=== PATIENT | male | born 1930 | race African-American/Black ===

== ENCOUNTER 2016-09-29 16:53 | Inpatient (IN) | payer OTHER ==
[2016-09-29 17:11] VITALS: BMI 21.4
[2016-09-29] MEDS ORDERED: SODIUM CHLORIDE 1,000 ML IV STA ×2 (17:13→19:03)
[2016-09-29 18:22] LABS: MCH 27.2 pg (25.7-33.7); MEAN PLT VOLUME 8.7 fl (7.5-11.1); PLATELET COUNT 153 K/MM3 (134-434); RDW 19.4 % (11.9-15.9); WHITE BLOOD COUNT 9.3 K/mm3 (4.0-10.0)
--- NOTE | 2016-09-29 18:24 | PDOC ---
[id number]: BOWEL OBSTRUCTION Time Seen by Provider: 09/29/16 17:05 History Source: [facility] Records, Other (Dr. Espinoza) Exam Limitations: No Limitations - History of Present Illness Initial Comments: 09/29/16 18:19 85-year-old male with history of dementia presents the ED for evaluation sent to the ER for small bowel obstruction. Patient had a CT done that showed small bowel obstruction with a dilatation up to 4.7 cm. Patient is currently not vomiting but has had poor by mouth intake for the past 2 days. Patient arrives slightly tachycardic and mildly hypotensive, and appears dehydrated. Timing/Duration: unsure Severity: moderate Associated Symptoms: reports: loss of appetite, weakness Past History - Past Medical History Allergies/Adverse Reactions: Allergies Allergy/AdvReac Type Severity Reaction Status Date / Time No Known Allergies Allergy Verified 09/29/16 17:12 Home Medications: Ambulatory Orders Calcium Carb/Magnesium Oxid/D3 [Calcium Magnesium + D Tablet] 1 mg PO DAILY 25/06 Citalopram Hydrobromide [Celexa] 20 mg PO DAILY 07/26/11 Gabapentin [Neurontin -] 300 mg PO HS 07/26/11 Metformin HCl [Glucophage Xr] 500 mg PO BID 07/26/11 Multivitamin [Daily Multiple Vitamin] 1 each PO DAILY 07/26/11 Xalatan Ophth Drops 1 gtt OU HS 07/26/11 Acetaminophen [Tylenol .Regular Strength -] 650 mg PO Q6H PRN 04/14/12 Aspirin [ASA -] 81 mg PO DAILY 04/14/12 Ibuprofen [Motrin -] 400 mg PO QID PRN 04/14/12 Insulin Regular, Human [Novolin R] 0 unit SQ ASDIR 04/14/12 Latanoprost 0.005% Eye Drops [Xalatan 0.005% Eye Drops -] 1 drop HS 04/14/12 Phenol/Eucalyptus Oil/Menthol [Cepastat 29 mg Lozenge] 29 mg PO ASDIR PRN Simvastatin [Zocor] 10 mg PO DAILY 04/14/12 Brimonidine Tartrate [Alphagan 0.15% -] 1 drop OD TID 09/29/16 Divalproex *ER* [Depakote *ER* -] 500 mg PO HS 09/29/16 Dorzolamide HCl [Trusopt 2%] 1 drop AD BID 09/29/16 Ferrous Sulfate [Feosol] 325 mg PO DAILY 09/29/16 Meclizine HCl 25 mg PO TID 09/29/16 Megestrol Acetate [Megace] 400 mg PO DAILY 09/29/16 Omeprazole Magnesium [Prilosec] 20 mg PO DAILY 09/29/16 Oxybutynin Chloride [Ditropan -] 5 mg PO DAILY 09/29/16 Risperidone 0.5 mg PO HS 09/29/16 Tamsulosin HCl [Flomax] 0.4 mg PO DAILY 09/29/16 Anemia: Yes COPD: Yes Dementia: Yes Diabetes: Yes Suicide Attempt (Hx): No - Immunization History Immunization Up to Date: Yes - Psycho/Social/Smoking Cessation Hx Suicidal Ideation: No Smoking Status: Yes Smoking History: Never smoked Have you smoked in the past 12 months: No Number of Cigarettes Smoked Daily: 0 Information on smoking cessation initiated: No 'Breaking Loose' booklet given: 04/14/12 Drug/Substance Use Hx: No Substance Use Type: None Patient Lives Alone: No Lives with/in: [facility] Review of Systems - Review of Systems Able to Perform ROS?: Yes Constitutional: Yes: Loss of Appetite, Weakness ABD/GI: Yes: Constipated (obstruction) Neurological: Yes: Weakness *Physical Exam - Vital Signs Last Vital Signs Temp Pulse Resp BP Pulse Ox 98.1 F 107 H 20 86/70 100 09/29/16 17:08 09/29/16 17:08 09/29/16 17:08 09/29/16 17:08 09/29/16 17:08 - Physical Exam General Appearance: Yes: Nourished, Appropriately Dressed. No: Apparent Distress HEENT: positive: EOMI, VASQUEZ, TMs Normal, Pharynx Normal (dry) Neck: positive: Supple Respiratory/Chest: positive: Lungs Clear, Normal Breath Sounds. negative: Respiratory Distress, Accessory Muscle Use Cardiovascular: positive: Regular Rhythm, Tachycardia. negative: Murmur Gastrointestinal/Abdominal: positive: Soft. negative: Tenderness Musculoskeletal: negative: CVA Tenderness Extremity: positive: Normal Capillary Refill Integumentary: positive: Normal Color, Warm, Moist Neurologic: positive: Motor Strength 5/5 (but lethargic) Heart Score/ECG Review - ECG Intrepretation Rhythm: Regular Rhythm (rate 106.) ED Treatment Course - LABORATORY CBC & Chemistry Diagram: 09/30/16 08:20 09/30/16 08:20 - RADIOLOGY Radiology Studies Ordered: Category Date Time Status CHEST X-RAY PORTABLE* [RAD] Stat Radiology 09/29/16 17:12 Completed Medical Decision Making - Critical Care Time Total Critical Care Time (minutes): 35 Critical Care Statement: The care of this patient involved high complexity decision making to prevent further life threatening deterioration of the patient 's condition and/or to evalute & treat vital organ system(s) failure or risk of failure. - Medical Decision Making 09/29/16 18:25 Patient sent in for small bowel obstruction to be admitted under Dr. Zahida Leal whom I spoke with and is recommending Dr. Cortez for consultation since patient is not a surgical candidate and is a DNR/DNI. Patient ordered for an NG tube to be placed to low wall suction. Patient ordered for maintenance fluids due to his dehydrated appearance. Patient will be admitted to [facility]. 09/29/16 18:52 Laboratory Tests 09/29/16 09/29/16 09/29/16 17:45 17:45 17:45 WBC 9.3 D Hgb 12.1 Hct 37.7 Neutrophils % Y INR Sodium 148 H Potassium 4.9 Chloride 111 H Carbon Dioxide 26 Anion Gap 11 BUN 62 H D Creatinine 1.5 H D Creat Clearance w eGFR 44.48 Random Glucose 99 Lactic Acid Pending Calcium 9.1 Magnesium 2.5 H Total Bilirubin 0.3 D AST 10 L D ALT 16 Alkaline Phosphatase 68 Albumin 2.9 L Urine Protein Urine Blood Urine Nitrite Ur Leukocyte Esterase Blood Type Antibody Screen 09/29/16 09/29/16 09/29/16 17:45 18:00 18:21 WBC Hgb Hct Neutrophils % INR 1.28 H Sodium Potassium Chloride Carbon Dioxide Anion Gap BUN Creatinine Creat Clearance w eGFR Random Glucose Lactic Acid Calcium Magnesium Total Bilirubin AST ALT Alkaline Phosphatase Albumin Urine Protein 1+ H Urine Blood 3+ H Urine Nitrite Negative Ur Leukocyte Esterase Negative Blood Type Pending Antibody Screen Pending 09/29/16 19:05 Laboratory Tests 09/29/16 17:45 Lactic Acid 3.579 H* Second bag of IV fluid ordered including Cipro and Flagyl IV. *DC/Admit/Observation/Transfer Diagnosis at time of Disposition: Small bowel obstruction - Discharge Dispostion Admit: Yes
[2016-09-29 18:27] LABS: URINE APPEARANCE SLCLOUDY; URINE BILIRUBIN NEGATIVE (NEGATIVE); URINE COLOR AMBER; URINE GLUCOSE (UA) NEGATIVE (NEGATIVE); URINE KETONE NEGATIVE (NEGATIVE); URINE LEUK ESTERASE NEGATIVE (NEGATIVE); URINE NITRITE NEGATIVE (NEGATIVE); URINE UROBILINOGEN 2.0 E.U/dl E.U./dl (0.2-1.0)
[2016-09-29 18:29] LABS: URINE BLOOD 3+ (NEGATIVE); URINE PROTEIN 1+ (NEGATIVE)
[2016-09-29 18:35] LABS: INR 1.28 (0.82-1.09); PROTHROMBIN TIME (PATIENT) 14.1 SEC (9.98-11.88)
[2016-09-29 18:46] LABS: ALBUMIN 2.9 g/dl (3.4-5.0); BILIRUBIN,TOTAL 0.3 mg/dL (0.2-1.0); CALCIUM 9.1 mg/dL (8.5-10.1); CREATININE 1.5 mg/dL (0.7-1.3); MAGNESIUM 2.5 mg/dL (1.8-2.4); TOT PROT 6.7 g/dl (6.4-8.2)
[2016-09-29] MEDS ORDERED: METRONIDAZOLE 500 MG PREMIXED 100 ML IVPB ONE ×2 (19:04→19:15)
[2016-09-29] MEDS ORDERED: CIPROFLOXACIN 200 MG/D5W 100 ML IVPB ONE (19:04)
[2016-09-29 19:56] LABS: URINE MUCUS RARE; URINE RBC 211 /hpf (0-3); URINE WBC 5 /hpf (3-5)
--- NOTE | 2016-09-29 20:35 | CON.GI ---
Consult Consult Specialty:: GI Referred by:: Dr Jake Coughlin Reason for Consultation:: SBO - History of Present Illness Chief Complaint: Patient sent from [place] for evaluation of abdominal distention. 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 - Smoking History Smoking history: Never smoked Have you smoked in the past 12 months: No Aproximately how many cigarettes per day: 0 Home Medications - Allergies Allergies/Adverse Reactions: Allergies Allergy/AdvReac Type Severity Reaction Status Date / Time No Known Allergies Allergy Verified 09/29/16 17:12 - Home Medications Home Medications: Ambulatory Orders Calcium Carb/Magnesium Oxid/D3 [Calcium Magnesium + D Tablet] 1 mg PO DAILY 25/06 Citalopram Hydrobromide [Celexa] 20 mg PO DAILY 07/26/11 Gabapentin [Neurontin -] 300 mg PO HS 07/26/11 Metformin HCl [Glucophage Xr] 500 mg PO BID 07/26/11 Multivitamin [Daily Multiple Vitamin] 1 each PO DAILY 07/26/11 Xalatan Ophth Drops 1 gtt OU HS 07/26/11 Acetaminophen [Tylenol .Regular Strength -] 650 mg PO Q6H PRN 04/14/12 Aspirin [ASA -] 81 mg PO DAILY 04/14/12 Ibuprofen [Motrin -] 400 mg PO QID PRN 04/14/12 Insulin Regular, Human [Novolin R] 0 unit SQ ASDIR 04/14/12 Latanoprost 0.005% Eye Drops [Xalatan 0.005% Eye Drops -] 1 drop HS 04/14/12 Phenol/Eucalyptus Oil/Menthol [Cepastat 29 mg Lozenge] 29 mg PO ASDIR PRN Simvastatin [Zocor] 10 mg PO DAILY 04/14/12 Brimonidine Tartrate [Alphagan 0.15% -] 1 drop OD TID 09/29/16 Divalproex *ER* [Depakote *ER* -] 500 mg PO HS 09/29/16 Dorzolamide HCl [Trusopt 2%] 1 drop AD BID 09/29/16 Ferrous Sulfate [Feosol] 325 mg PO DAILY 09/29/16 Meclizine HCl 25 mg PO TID 09/29/16 Megestrol Acetate [Megace] 400 mg PO DAILY 09/29/16 Omeprazole Magnesium [Prilosec] 20 mg PO DAILY 09/29/16 Oxybutynin Chloride [Ditropan -] 5 mg PO DAILY 09/29/16 Risperidone 0.5 mg PO HS 09/29/16 Tamsulosin HCl [Flomax] 0.4 mg PO DAILY 09/29/16 Physical Exam-GI Vital Signs: Vital Signs Temperature 98.1 F 09/29/16 17:08 Pulse Rate 102 H 09/29/16 18:50 Respiratory Rate 16 09/29/16 18:50 Blood Pressure 127/81 09/29/16 18:50 O2 Sat by Pulse Oximetry (%) 100 09/29/16 17:08 Constitutional: Yes: Well Nourished (Patient noted to have wrist restraints and is apparently DNR/) Neck: Yes: Supple Cardiovascular: Yes: Regular Rate and Rhythm Respiratory: Yes: CTA Bilaterally Gastrointestinal Inspection: Yes: Distention, Hernia (ventral with bowel loop. Non tender to palpation) ...Auscultate: Yes: Hypoactive Bowel Sounds ...Palpate: Yes: Soft. No: Tenderness ...Percussion: Yes: Tympanitic Labs: INR, PTT INR 1.28 (0.82-1.09) H 09/29/16 18:00 CBC, BMP 09/29/16 17:45 09/29/16 17:45 Hepatic Panel Total Bilirubin 0.3 mg/dL (0.2-1.0) D 09/29/16 17:45 AST 10 U/L (15-37) L D 09/29/16 17:45 ALT 16 U/L (12-78) 09/29/16 17:45 Alkaline Phosphatase 68 U/L (45-117) 09/29/16 17:45 Albumin 2.9 g/dl (3.4-5.0) L 09/29/16 17:45 Imaging - Results Cat Scan: Report Reviewed (?high grade obstruction. Non-tender hernia with normal labs.) Assessment/Plan 85 M with above history now with SBO by radiology. Would keep npo Surgical eval Clarify goals of care
[2016-09-29] MEDS ORDERED: ACETAMINOPHEN 1000 MG/100 ML VIAL (NON FORMULARY) IVPB PRN (22:36)
[2016-09-29] MEDS ORDERED: LEVOFLOXACIN 500 MG IVPB 100 ML IVPB SCH (23:00)
[2016-09-30] MEDS: D5-1/2NS+10 MEQ KCL - 1,000 ML IV SCH ×3 (01:07→22:37)
[2016-09-30] MEDS: METRONIDAZOLE 500 MG PREMIXED 100 ML IVPB SCH ×3 (01:08→17:33)
[2016-09-30 08:39] LABS: BASOPHIL 0.4 % (0-2.0); EOSINOPHIL 1.7 % (0-4.5); MCHC 31.8 g/dl (32.0-35.9); MEAN CELL VOLUME 84.8 fl (80-96); MEAN PLT VOLUME 7.9 fl (7.5-11.1); NEUTROPHILS 68.2 % (42.8-82.8); PLATELET COUNT 126 K/MM3 (134-434); RDW 19.4 % (11.9-15.9); WHITE BLOOD COUNT 6.9 K/mm3 (4.0-10.0)
[2016-09-30 09:21] LABS: ALBUMIN 2.6 g/dl (3.4-5.0); ALK PHOS 59 U/L (45-117); ANION GAP 10 (8-16); BILIRUBIN,TOTAL 0.5 mg/dL (0.2-1.0); CO2 27 mmol/L (21-32); CREATININE 1.1 mg/dL (0.7-1.3); GLUCOSE,RANDOM 108 mg/dL (74-106); SGOT/AST 11 U/L (15-37); SGPT/ALT 13 U/L (12-78); TOT PROT 5.6 g/dl (6.4-8.2)
[2016-09-30] MEDS: PANTOPRAZOLE SODIUM 100 ML IVPB SCH (10:56)
[2016-09-30] MEDS: LEVOFLOXACIN 500 MG IVPB 100 ML IVPB SCH (10:57)
--- NOTE | 2016-09-30 11:12 | HP ---
Admitting History and Physical - Primary Care Physician PCP: Ani Coughlin - Admission Chief Complaint: abd pain , SBO History of Present Illness: ER HISTORY - History of Present Illness Initial Comments: 09/29/16 18:19 85-year-old male with history of dementia presents the ED for evaluation sent to the ER for small bowel obstruction. Patient had a CT done that showed small bowel obstruction with a dilatation up to 4.7 cm. Patient is currently not vomiting but has had poor by mouth intake for the past 2 days. Patient arrives slightly tachycardic and mildly hypotensive, and appears dehydrated. Timing/Duration: unsure Severity: moderate Associated Symptoms: reports: loss of appetite, weakness Pt seen by me on the floors Sent from [facility] for SBO. He was recently treated with antibiotics for pneumonia. Pt has been slowly declining, has poor po intake. Noted to have abdominal pain in OR and was sent for outpt CT scan of abdomen on 09/29. I received a call from the radiologist who said that pt had high grade small bowel obstruction . I spoke to his daughter, who does not want any aggressive measures.Pt is DNR/DNI Had a big BM this morning No distress Pt is drowsy He pulled out his NG tube this morning. 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 Cardiovascular: Yes: HTN Gastrointestinal: Yes: GERD Psych: Yes: Bipolar, Depression Endocrine: Yes: Diabetes Mellitus - Advance Directives Advance Directives: Yes: DNR - Smoking History Smoking history: Never smoked Have you smoked in the past 12 months: No Aproximately how many cigarettes per day: 0 - Alcohol/Substance Use Hx Alcohol Use: No Home Medications - Allergies Allergies/Adverse Reactions: Allergies Allergy/AdvReac Type Severity Reaction Status Date / Time No Known Allergies Allergy Verified 09/29/16 17:12 - Home Medications Home Medications: Ambulatory Orders Calcium Carb/Magnesium Oxid/D3 [Calcium Magnesium + D Tablet] 1 mg PO DAILY 25/06 Citalopram Hydrobromide [Celexa] 20 mg PO DAILY 07/26/11 Gabapentin [Neurontin -] 300 mg PO HS 07/26/11 Metformin HCl [Glucophage Xr] 500 mg PO BID 07/26/11 Multivitamin [Daily Multiple Vitamin] 1 each PO DAILY 07/26/11 Xalatan Ophth Drops 1 gtt OU HS 07/26/11 Acetaminophen [Tylenol .Regular Strength -] 650 mg PO Q6H PRN 04/14/12 Aspirin [ASA -] 81 mg PO DAILY 04/14/12 Ibuprofen [Motrin -] 400 mg PO QID PRN 04/14/12 Insulin Regular, Human [Novolin R] 0 unit SQ ASDIR 04/14/12 Latanoprost 0.005% Eye Drops [Xalatan 0.005% Eye Drops -] 1 drop HS 04/14/12 Phenol/Eucalyptus Oil/Menthol [Cepastat 29 mg Lozenge] 29 mg PO ASDIR PRN Simvastatin [Zocor] 10 mg PO DAILY 04/14/12 Brimonidine Tartrate [Alphagan 0.15% -] 1 drop OD TID 09/29/16 Divalproex *ER* [Depakote *ER* -] 500 mg PO HS 09/29/16 Dorzolamide HCl [Trusopt 2%] 1 drop AD BID 09/29/16 Ferrous Sulfate [Feosol] 325 mg PO DAILY 09/29/16 Meclizine HCl 25 mg PO TID 09/29/16 Megestrol Acetate [Megace] 400 mg PO DAILY 09/29/16 Omeprazole Magnesium [Prilosec] 20 mg PO DAILY 09/29/16 Oxybutynin Chloride [Ditropan -] 5 mg PO DAILY 09/29/16 Risperidone 0.5 mg PO HS 09/29/16 Tamsulosin HCl [Flomax] 0.4 mg PO DAILY 09/29/16 Family Disease History - Family Disease History Family History: Unable to Obtain Review of Systems Unable to obtain ROS, reason: poor historian, drowsy Physical Examination Vital Signs: Vital Signs Temperature 98.0 F 09/30/16 09:05 Pulse Rate 81 09/30/16 09:05 Respiratory Rate 18 09/30/16 09:05 Blood Pressure 147/80 09/30/16 09:05 O2 Sat by Pulse Oximetry (%) 100 09/29/16 17:08 Constitutional: Yes: No Distress, Other (drowsy) Cardiovascular: Yes: Regular Rate and Rhythm Respiratory: Yes: Diminished Gastrointestinal: Yes: Normal Bowel Sounds, Soft. No: Distention, Tenderness Edema: No Labs: CBC, BMP 09/30/16 08:20 09/30/16 08:20 Imaging - Results Chest X-ray: Image Reviewed (no infiltrate) EKG: Image Reviewed (sinus tachycardia) Problem List - Problems (1) Small bowel obstruction Code(s): K56.69 - OTHER INTESTINAL OBSTRUCTION (2) Dementia Code(s): F03.90 - UNSPECIFIED DEMENTIA WITHOUT BEHAVIORAL DISTURBANCE Qualifiers: Dementia type: unspecified type Dementia behavioral disturbance: without behavioral disturbance Qualified Code(s): F03.90 - Unspecified dementia without behavioral disturbance (3) Dehydration Code(s): E86.0 - DEHYDRATION (4) Bipolar 1 disorder Code(s): F31.9 - BIPOLAR DISORDER, UNSPECIFIED (5) HTN (hypertension) Code(s): I10 - ESSENTIAL (PRIMARY) HYPERTENSION Qualifiers: Hypertension type: essential hypertension Qualified Code(s): I10 - Essential (primary) hypertension (6) Sepsis Code(s): A41.9 - SEPSIS, UNSPECIFIED ORGANISM Qualifiers: Sepsis type: sepsis due to unspecified organism Qualified Code(s): A41.9 - Sepsis, unspecified organism Assessment/Plan PLAN IV fluids iv antibiotics repeat lactic acid pain control Pt has bowel sounds and had a bm this morning Check [facility] eval noted pt is comfortable DVT prophylaxis-- Heparin sc Daughter does not want any aggressive measures. Hopefully SBO should get resolved with conservative measures.
--- NOTE | 2016-09-30 12:37 | EKG ---
Test Reason : Blood Pressure : / mmHG Vent. Rate : 106 BPM Atrial Rate : 106 BPM P-R Int : 140 ms QRS Dur : 070 ms QT Int : 324 ms P-R-T Axes : 082 069 080 degrees QTc Int : 430 ms SINUS TACHYCARDIA SEPTAL INFARCT , AGE UNDETERMINED ABNORMAL ECG WHEN COMPARED WITH ECG OF 14-APR-2012 11:54, SEPTAL INFARCT IS NOW PRESENT Confirmed by JAMIE OCHOA, WILI ([id number]) on 09/30/2016 12:36:21 PM Referred By: Confirmed By:WILI AYALA MD
--- NOTE | 2016-09-30 15:02 | CONSULT ---
Consult Consult Specialty:: Surgery Referred by:: Elvis Teague Md Reason for Consultation:: Intestinal obstruction. - History of Present Illness History of Present Illness: Patient is admitted with vomiting, abdominal distention and pain, from [facility] and found to have a ventral hernia with small bowel obstruction. Patient has had a large bowel movement after admission. 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 Cardio/Vascular: Yes: HTN Gastrointestinal: Yes: GERD Psych: Yes: Bipolar, Depression Endocrine: Yes: Diabetes Mellitus - Alcohol/Substance Use Hx Alcohol Use: No - Smoking History Smoking history: Never smoked Have you smoked in the past 12 months: No Aproximately how many cigarettes per day: 0 Home Medications - Allergies Allergies/Adverse Reactions: Allergies Allergy/AdvReac Type Severity Reaction Status Date / Time No Known Allergies Allergy Verified 09/29/16 17:12 - Home Medications Home Medications: Ambulatory Orders Calcium Carb/Magnesium Oxid/D3 [Calcium Magnesium + D Tablet] 1 mg PO DAILY 25/06 Citalopram Hydrobromide [Celexa] 20 mg PO DAILY 07/26/11 Gabapentin [Neurontin -] 300 mg PO HS 07/26/11 Metformin HCl [Glucophage Xr] 500 mg PO BID 07/26/11 Multivitamin [Daily Multiple Vitamin] 1 each PO DAILY 07/26/11 Xalatan Ophth Drops 1 gtt OU HS 07/26/11 Acetaminophen [Tylenol .Regular Strength -] 650 mg PO Q6H PRN 04/14/12 Aspirin [ASA -] 81 mg PO DAILY 04/14/12 Ibuprofen [Motrin -] 400 mg PO QID PRN 04/14/12 Insulin Regular, Human [Novolin R] 0 unit SQ ASDIR 04/14/12 Latanoprost 0.005% Eye Drops [Xalatan 0.005% Eye Drops -] 1 drop HS 04/14/12 Phenol/Eucalyptus Oil/Menthol [Cepastat 29 mg Lozenge] 29 mg PO ASDIR PRN Simvastatin [Zocor] 10 mg PO DAILY 04/14/12 Brimonidine Tartrate [Alphagan 0.15% -] 1 drop OD TID 09/29/16 Divalproex *ER* [Depakote *ER* -] 500 mg PO HS 09/29/16 Dorzolamide HCl [Trusopt 2%] 1 drop AD BID 09/29/16 Ferrous Sulfate [Feosol] 325 mg PO DAILY 09/29/16 Meclizine HCl 25 mg PO TID 09/29/16 Megestrol Acetate [Megace] 400 mg PO DAILY 09/29/16 Omeprazole Magnesium [Prilosec] 20 mg PO DAILY 09/29/16 Oxybutynin Chloride [Ditropan -] 5 mg PO DAILY 09/29/16 Risperidone 0.5 mg PO HS 09/29/16 Tamsulosin HCl [Flomax] 0.4 mg PO DAILY 09/29/16 Physical Exam Vital Signs: Vital Signs Temperature 98.1 F 09/30/16 13:56 Pulse Rate 80 09/30/16 13:56 Respiratory Rate 20 09/30/16 13:56 Blood Pressure 151/93 09/30/16 13:56 O2 Sat by Pulse Oximetry (%) 100 09/29/16 17:08 Cardiovascular: Yes: Varicosities Gastrointestinal: Yes: Normal Bowel Sounds (No abdominal distention. Incisional /Ventral hernia , reducible. No abdominal pain , tenderness. No groin hernia is appreciated , however CT scan is reported as showing a right inguinal hernia with unobstructed bowel.), Soft Labs: CBC, BMP 09/30/16 08:20 09/30/16 08:20 Imaging - Results Cat Scan: Report Reviewed Problem List - Problems (1) Ventral hernia with bowel obstruction Code(s): K43.6 - OTHER AND UNSP VENTRAL HERNIA WITH OBSTRUCTION, W/O GANGRENE (2) Dementia Code(s): F03.90 - UNSPECIFIED DEMENTIA WITHOUT BEHAVIORAL DISTURBANCE Qualifiers: Dementia type: Alzheimer's disease Dementia behavioral disturbance: without behavioral disturbance Qualified Code(s): - (3) HTN (hypertension) Code(s): I10 - ESSENTIAL (PRIMARY) HYPERTENSION Qualifiers: Hypertension type: essential hypertension Qualified Code(s): I10 - Essential (primary) hypertension Assessment/Plan Obstructed ventral hernia appears to have reduced. He has no abdominal distention , or pain , no vomiting. Soft abdomen. Will repeat abdominal X -ray.
--- NOTE | 2016-09-30 18:16 | PN ---
GI Progress Note Subjective: patient is asymptomatic, no abdominal pain, no nausea and no vomiting, FUA reviewed,patient noted to have retained stool in the rectum - Objective Vital Signs: Vital Signs Temperature 98.1 F 09/30/16 13:56 Pulse Rate 80 09/30/16 13:56 Respiratory Rate 20 09/30/16 13:56 Blood Pressure 151/93 09/30/16 13:56 O2 Sat by Pulse Oximetry (%) 96 09/30/16 11:00 Constitutional: Well Nourished Eyes: Yes: Conjunctiva Clear Neck: Yes: Supple Cardiovascular: Yes: Regular Rate and Rhythm Respiratory: Yes: CTA Bilaterally ...Palpate: Yes: Soft. No: Firm/Rigid, Guarding, Hepatomegaly, Mass, Pulsatile Mass, Splenomegaly, Tenderness ...Percussion: Yes: Tympanitic Labs: CBC, BMP 09/30/16 08:20 09/30/16 08:20 INR, PTT INR 1.28 (0.82-1.09) H 09/29/16 18:00 Problem List - Problems (1) Small bowel obstruction Assessment/Plan: --resolved Code(s): K56.69 - OTHER INTESTINAL OBSTRUCTION (2) Fecal impaction Assessment/Plan: R> fleet enemas advance diet Code(s): K56.41 - FECAL IMPACTION
[2016-09-30] MEDS: SODIUM PHOSPHATE/NA BIPHOS 133 ML ENEMA PR SCH (20:20)
[2016-09-30] MEDS: HEPARIN NA (PORCINE) 5,000 UNITS/ML 1ML VIAL SQ SCH (22:31)
[2016-10-01] MEDS: SODIUM PHOSPHATE/NA BIPHOS 133 ML ENEMA PR SCH ×2 (00:48→04:39)
[2016-10-01] MEDS: METRONIDAZOLE 500 MG PREMIXED 100 ML IVPB SCH ×3 (01:11→18:20)
[2016-10-01] MEDS: D5-1/2NS+10 MEQ KCL - 1,000 ML IV SCH (04:41)
[2016-10-01 07:17] LABS: BASOPHIL 0.5 % (0-2.0); EOSINOPHIL 0.5 % (0-4.5); MCHC 31.7 g/dl (32.0-35.9); MEAN PLT VOLUME 8.1 fl (7.5-11.1); NEUTROPHILS 76.9 % (42.8-82.8); PLATELET COUNT 139 K/MM3 (134-434); RDW 18.7 % (11.9-15.9); WHITE BLOOD COUNT 9.2 K/mm3 (4.0-10.0)
[2016-10-01 07:46] LABS: ALBUMIN 2.5 g/dl (3.4-5.0); ANION GAP 13 (8-16); BILIRUBIN,TOTAL 0.7 mg/dL (0.2-1.0); CALCIUM 7.3 mg/dL (8.5-10.1); CO2 24 mmol/L (21-32); CREATININE 0.9 mg/dL (0.7-1.3); GLUCOSE,RANDOM 120 mg/dL (74-106); SGOT/AST 14 U/L (15-37); SGPT/ALT 11 U/L (12-78); TOT PROT 5.4 g/dl (6.4-8.2)
[2016-10-01 07:47] LABS: ALK PHOS 62 U/L (45-117)
[2016-10-01] MEDS ORDERED: PT OWN MED DRAWER 7, Y5N ONE (09:23)
[2016-10-01] MEDS: HEPARIN NA (PORCINE) 5,000 UNITS/ML 1ML VIAL SQ SCH ×2 (10:45→21:52)
[2016-10-01] MEDS: PANTOPRAZOLE SODIUM 100 ML IVPB SCH (11:02)
[2016-10-01] MEDS: LEVOFLOXACIN 500 MG IVPB 100 ML IVPB SCH (11:03)
--- NOTE | 2016-10-01 16:21 | PN ---
Progress Note, Physician - Current Medication List Current Medications: Active Medications Heparin Sodium (Porcine) (Heparin -) 5,000 unit SQ BID [facility] Last Admin: 10/01/16 10:45 Dose: 5,000 unit Metronidazole (Flagyl 500mg Premixed Ivpb -) 100 mls @ 100 mls/hr IVPB Q8H-IV [facility] Last Admin: 10/01/16 11:03 Dose: 100 mls/hr Pantoprazole Sodium (Protonix 40mg Ivpb (Pre-Docked)) 100 mls @ 200 mls/hr IVPB DAILY [facility] Last Admin: 10/01/16 11:02 Dose: 200 mls/hr Potassium Chloride/Dextrose/Sod Cl (D5-1/2ns+10 Meq Kcl -) 1,000 mls @ 100 mls/ hr IV ASDIR [facility] Last Admin: 10/01/16 04:41 Dose: 100 mls/hr Levofloxacin (Levaquin 500 Mg Premixed Ivpb -) 100 mls @ 100 mls/hr IVPB DAILY [facility] Last Admin: 10/01/16 11:03 Dose: 100 mls/hr - Objective Vital Signs: Vital Signs Temperature 98.4 F 10/01/16 14:12 Pulse Rate 90 10/01/16 14:12 Respiratory Rate 20 10/01/16 14:12 Blood Pressure 122/87 10/01/16 14:12 O2 Sat by Pulse Oximetry (%) 96 10/01/16 09:00 Labs: CBC, BMP 10/01/16 06:00 10/01/16 06:00 INR, PTT INR 1.28 (0.82-1.09) H 09/29/16 18:00 Problem List - Problems (1) Ventral hernia with bowel obstruction Code(s): K43.6 - OTHER AND UNSP VENTRAL HERNIA WITH OBSTRUCTION, W/O GANGRENE (2) Dementia Code(s): F03.90 - UNSPECIFIED DEMENTIA WITHOUT BEHAVIORAL DISTURBANCE Qualifiers: Dementia type: Alzheimer's disease Dementia behavioral disturbance: without behavioral disturbance (3) HTN (hypertension) Code(s): I10 - ESSENTIAL (PRIMARY) HYPERTENSION Qualifiers: Hypertension type: essential hypertension Qualified Code(s): I10 - Essential (primary) hypertension Assessment/Plan Surgery: Patient is comfortable. No vomiting. Does not c/o abdominal pain. Abdomen is soft , not distended, not tender. Ventral hernia is reducible, without pasin. Both groins are normal. Abdominal X-ray shows air in colon and rectum,, but some air fluid levels are noted on decubitus film. He has been tolerating feeding. On miralax for bowel prep.
--- NOTE | 2016-10-01 20:39 | PN ---
Progress Note, Physician Chief Complaint: no distress eats poor no pain in abdomen - Current Medication List Current Medications: Active Medications Heparin Sodium (Porcine) (Heparin -) 5,000 unit SQ BID [facility] Last Admin: 10/01/16 10:45 Dose: 5,000 unit Metronidazole (Flagyl 500mg Premixed Ivpb -) 100 mls @ 100 mls/hr IVPB Q8H-IV [facility] Last Admin: 10/01/16 18:20 Dose: 100 mls/hr Pantoprazole Sodium (Protonix 40mg Ivpb (Pre-Docked)) 100 mls @ 200 mls/hr IVPB DAILY [facility] Last Admin: 10/01/16 11:02 Dose: 200 mls/hr Potassium Chloride/Dextrose/Sod Cl (D5-1/2ns+10 Meq Kcl -) 1,000 mls @ 100 mls/ hr IV ASDIR [facility] Last Admin: 10/01/16 04:41 Dose: 100 mls/hr Levofloxacin (Levaquin 500 Mg Premixed Ivpb -) 100 mls @ 100 mls/hr IVPB DAILY [facility] Last Admin: 10/01/16 11:03 Dose: 100 mls/hr - Objective Vital Signs: Vital Signs Temperature 99.4 F 10/01/16 20:30 Pulse Rate 98 H 10/01/16 20:30 Respiratory Rate 20 10/01/16 20:36 Blood Pressure 126/81 10/01/16 20:30 O2 Sat by Pulse Oximetry (%) 99 10/01/16 20:36 Constitutional: Yes: No Distress Cardiovascular: Yes: Regular Rate and Rhythm Respiratory: Yes: Diminished Gastrointestinal: Yes: Soft, Hypoactive Bowel Sounds. No: Distention, Tenderness Edema: No Labs: CBC, BMP 10/01/16 06:00 10/01/16 06:00 INR, PTT INR 1.28 (0.82-1.09) H 09/29/16 18:00 Problem List - Problems (1) Small bowel obstruction Code(s): K56.69 - OTHER INTESTINAL OBSTRUCTION (2) Dementia Code(s): F03.90 - UNSPECIFIED DEMENTIA WITHOUT BEHAVIORAL DISTURBANCE Qualifiers: Dementia type: Alzheimer's disease Dementia behavioral disturbance: without behavioral disturbance (3) Dehydration Code(s): E86.0 - DEHYDRATION (4) Bipolar 1 disorder Code(s): F31.9 - BIPOLAR DISORDER, UNSPECIFIED (5) HTN (hypertension) Code(s): I10 - ESSENTIAL (PRIMARY) HYPERTENSION Qualifiers: Hypertension type: essential hypertension Qualified Code(s): I10 - Essential (primary) hypertension (6) Sepsis Code(s): A41.9 - SEPSIS, UNSPECIFIED ORGANISM Qualifiers: Sepsis type: sepsis due to unspecified organism Qualified Code(s): A41.9 - Sepsis, unspecified organism Assessment/Plan PLAN IV fluids iv antibiotics repeat lactic acid pain control surgery eval noted clinically looks better spoke with Surgeon on PO diet pt is comfortable DVT prophylaxis-- Heparin sc Daughter does not want any aggressive measures.
[2016-10-02] MEDS: D5-1/2NS+10 MEQ KCL - 1,000 ML IV SCH ×3 (01:13→20:19)
[2016-10-02] MEDS: METRONIDAZOLE 500 MG PREMIXED 100 ML IVPB SCH ×3 (02:07→18:23)
--- NOTE | 2016-10-02 09:14 | PN ---
Progress Note, Physician - Current Medication List Current Medications: Active Medications Heparin Sodium (Porcine) (Heparin -) 5,000 unit SQ BID [facility] Last Admin: 10/01/16 21:52 Dose: 5,000 unit Metronidazole (Flagyl 500mg Premixed Ivpb -) 100 mls @ 100 mls/hr IVPB Q8H-IV [facility] Last Admin: 10/02/16 02:07 Dose: 100 mls/hr Pantoprazole Sodium (Protonix 40mg Ivpb (Pre-Docked)) 100 mls @ 200 mls/hr IVPB DAILY [facility] Last Admin: 10/01/16 11:02 Dose: 200 mls/hr Potassium Chloride/Dextrose/Sod Cl (D5-1/2ns+10 Meq Kcl -) 1,000 mls @ 100 mls/ hr IV ASDIR [facility] Last Admin: 10/02/16 06:07 Dose: 100 mls/hr Levofloxacin (Levaquin 500 Mg Premixed Ivpb -) 100 mls @ 100 mls/hr IVPB DAILY [facility] Last Admin: 10/01/16 11:03 Dose: 100 mls/hr - Objective Vital Signs: Vital Signs Temperature 97.6 F 10/02/16 06:00 Pulse Rate 101 H 10/02/16 06:00 Respiratory Rate 20 10/02/16 06:00 Blood Pressure 103/72 10/02/16 06:00 O2 Sat by Pulse Oximetry (%) 99 10/01/16 20:36 Labs: CBC, BMP 10/01/16 06:00 10/01/16 06:00 INR, PTT INR 1.28 (0.82-1.09) H 09/29/16 18:00 Problem List - Problems (1) Ventral hernia with bowel obstruction Code(s): K43.6 - OTHER AND UNSP VENTRAL HERNIA WITH OBSTRUCTION, W/O GANGRENE (2) Dementia Code(s): F03.90 - UNSPECIFIED DEMENTIA WITHOUT BEHAVIORAL DISTURBANCE Qualifiers: Dementia type: Alzheimer's disease Dementia behavioral disturbance: without behavioral disturbance (3) HTN (hypertension) Code(s): I10 - ESSENTIAL (PRIMARY) HYPERTENSION Qualifiers: Hypertension type: essential hypertension Qualified Code(s): I10 - Essential (primary) hypertension Assessment/Plan Surgery: Patient is comfortable. No nausea, no vomiting. Abdomen is soft , not distended, not tender. Ventral hernia is reduced. Resume oral feeding. Repeat abdominal X-ray.
[2016-10-02] MEDS: PANTOPRAZOLE SODIUM 100 ML IVPB SCH (09:45)
--- NOTE | 2016-10-02 10:28 | PN ---
Progress Note (short form) - Note Progress Note: Subjective Patient seen and examined. Chart reviewed. Comfortable. Denies any pain. Objective VS: Last Vital Signs Temp Pulse Resp BP Pulse Ox 97.6 F 101 H 20 103/72 99 10/02/16 06:00 10/02/16 06:00 10/02/16 06:00 10/02/16 06:00 10/01/16 20:36 Labs: CBC, BMP 10/01/16 06:00 10/01/16 06:00 Problem List - Problems (1) Small bowel obstruction Code(s): K56.69 - OTHER INTESTINAL OBSTRUCTION (2) Dementia Code(s): F03.90 - UNSPECIFIED DEMENTIA WITHOUT BEHAVIORAL DISTURBANCE Qualifiers: Dementia type: Alzheimer's disease Dementia behavioral disturbance: without behavioral disturbance (3) Dehydration Code(s): E86.0 - DEHYDRATION (4) Bipolar 1 disorder Code(s): F31.9 - BIPOLAR DISORDER, UNSPECIFIED (5) HTN (hypertension) Code(s): I10 - ESSENTIAL (PRIMARY) HYPERTENSION Qualifiers: Hypertension type: essential hypertension Qualified Code(s): I10 - Essential (primary) hypertension (6) Sepsis Code(s): A41.9 - SEPSIS, UNSPECIFIED ORGANISM Qualifiers: Sepsis type: sepsis due to unspecified organism Qualified Code(s): A41.9 - Sepsis, unspecified organism Physical Exam Constitutional: Yes: No Distress Cardiovascular: Yes: Regular Rate and Rhythm Respiratory: Yes: Diminished Gastrointestinal: Yes: Soft, Hypoactive Bowel Sounds. No: Distention, Tenderness Edema: No Assessment and Plan Clinically better. Abdominal XR reviewed - resolving SBO Continue present care. Advance diet slowly. If continue to improve anticipate discharge tomorrow. Documentation prepared by Thu Hull, acting as a medical administrative technician for Ani Coughlin MD.
[2016-10-02] MEDS: LEVOFLOXACIN 500 MG IVPB 100 ML IVPB SCH (11:38)
[2016-10-02] MEDS: HEPARIN NA (PORCINE) 5,000 UNITS/ML 1ML VIAL SQ SCH ×2 (11:38→21:24)
[2016-10-03] MEDS: D5-1/2NS+10 MEQ KCL - 1,000 ML IV SCH (01:00)
[2016-10-03] MEDS: METRONIDAZOLE 500 MG PREMIXED 100 ML IVPB SCH ×2 (01:30→09:39)
[2016-10-03] MEDS: PANTOPRAZOLE SODIUM 100 ML IVPB SCH (09:00)
[2016-10-03] MEDS: HEPARIN NA (PORCINE) 5,000 UNITS/ML 1ML VIAL SQ SCH ×2 (09:01→22:11)
[2016-10-03] MEDS: LEVOFLOXACIN 500 MG IVPB 100 ML IVPB SCH (09:39)
--- NOTE | 2016-10-03 12:15 | PN ---
Progress Note (short form) - Note Progress Note: pt awake/ looks weak. no distress. afebrile. denies pain Vital Signs Temp 98 F 10/03/16 09:10 Pulse 94 H 10/03/16 09:10 Resp 18 10/03/16 09:10 BP 116/79 10/03/16 09:10 Pulse Ox 100 10/03/16 09:00 Intake & Output 10/02/16 10/03/16 10/03/16 23:59 11:59 23:59 Intake Total 50 1600 Output Total 300 300 Balance -250 1300 Intake: IV 1100 D5-1/2Ns+10 Meq KCl - 1, 1100 000 ml @ 100 mls/hr IV ASDIR [facility] Rx#:[id number] IVPB 400 Oral 50 100 Output: Urine 300 300 Cob[place] 300 300 Other: Voiding Method Indwelling Catheter Indwelling Catheter Bowel Movement No No Active Medications Heparin Sodium (Porcine) (Heparin -) 5,000 unit SQ BID [facility] Last Admin: 10/03/16 09:01 Dose: 5,000 unit Pantoprazole Sodium (Protonix 40mg Ivpb (Pre-Docked)) 100 mls @ 200 mls/hr IVPB DAILY [facility] Last Admin: 10/03/16 09:00 Dose: 200 mls/hr Potassium Chloride/Dextrose/Sod Cl (D5-1/2ns+10 Meq Kcl -) 1,000 mls @ 100 mls/ hr IV ASDIR [facility] Last Admin: 10/03/16 01:00 Dose: Not Given CBC, BMP 10/01/16 06:00 10/01/16 06:00 Problem List - Problems (1) Small bowel obstruction Code(s): K56.69 - OTHER INTESTINAL OBSTRUCTION (2) Dementia Code(s): F03.90 - UNSPECIFIED DEMENTIA WITHOUT BEHAVIORAL DISTURBANCE Qualifiers: Dementia type: Alzheimer's disease Dementia behavioral disturbance: without behavioral disturbance (3) Dehydration Code(s): E86.0 - DEHYDRATION (4) Bipolar 1 disorder Code(s): F31.9 - BIPOLAR DISORDER, UNSPECIFIED (5) HTN (hypertension) Code(s): I10 - ESSENTIAL (PRIMARY) HYPERTENSION Qualifiers: Hypertension type: essential hypertension Qualified Code(s): I10 - Essential (primary) hypertension (6) Sepsis Code(s): A41.9 - SEPSIS, UNSPECIFIED ORGANISM Qualifiers: Sepsis type: sepsis due to unspecified organism Qualified Code(s): A41.9 - Sepsis, unspecified organism Physical Exam Constitutional: Yes: No Distress Cardiovascular: Yes: Regular Rate and Rhythm Respiratory: Yes: Diminished Gastrointestinal: Yes: Soft, Hypoactive Bowel Sounds. No: Distention, Tenderness Edema: No Assessment and Plan Clinically better. resolving SBO Continue present care. Advance diet slowly. d/c abx d/ cfoley f/u labs monitor today continue mild hydration If better - consider d/c tomorrow.
--- NOTE | 2016-10-03 19:58 | PN ---
Progress Note, Physician - Current Medication List Current Medications: Active Medications Heparin Sodium (Porcine) (Heparin -) 5,000 unit SQ BID [facility] Last Admin: 10/03/16 09:01 Dose: 5,000 unit Pantoprazole Sodium (Protonix 40mg Ivpb (Pre-Docked)) 100 mls @ 200 mls/hr IVPB DAILY [facility] Last Admin: 10/03/16 09:00 Dose: 200 mls/hr Potassium Chloride/Dextrose/Sod Cl (D5-1/2ns+10 Meq Kcl -) 1,000 mls @ 100 mls/ hr IV ASDIR [facility] Last Admin: 10/03/16 01:00 Dose: Not Given - Objective Vital Signs: Vital Signs Temperature 98 F 10/03/16 17:21 Pulse Rate 92 H 10/03/16 17:21 Respiratory Rate 20 10/03/16 17:21 Blood Pressure 129/69 10/03/16 17:21 O2 Sat by Pulse Oximetry (%) 100 10/03/16 09:00 Labs: CBC, BMP 10/01/16 06:00 10/01/16 06:00 INR, PTT INR 1.28 (0.82-1.09) H 09/29/16 18:00 Problem List - Problems (1) Ventral hernia with bowel obstruction Code(s): K43.6 - OTHER AND UNSP VENTRAL HERNIA WITH OBSTRUCTION, W/O GANGRENE (2) Dementia Code(s): F03.90 - UNSPECIFIED DEMENTIA WITHOUT BEHAVIORAL DISTURBANCE Qualifiers: Dementia type: Alzheimer's disease Dementia behavioral disturbance: without behavioral disturbance (3) HTN (hypertension) Code(s): I10 - ESSENTIAL (PRIMARY) HYPERTENSION Qualifiers: Hypertension type: essential hypertension Qualified Code(s): I10 - Essential (primary) hypertension Assessment/Plan Patient is alert today, talking. He claims to have pain all over his body, but not in his abdomen. He has tolerated liquids. He has not had any bowel movement. The ventral hernia is reducible. Will repeat abdominal X-ray .
[2016-10-03] MEDS: TAMSULOSIN HCL 0.4 MG CAP.ER.24H (FP) PO SCH (22:11)
[2016-10-04] MEDS: D5-1/2NS+10 MEQ KCL - 1,000 ML IV SCH ×2 (07:02→18:28)
[2016-10-04] MEDS: TAMSULOSIN HCL 0.4 MG CAP.ER.24H (FP) PO SCH (08:31)
[2016-10-04] MEDS ORDERED: PT OWN MED DRAWER 7, Y5N ONE ×2 (11:14→18:47)
[2016-10-04] MEDS: HEPARIN NA (PORCINE) 5,000 UNITS/ML 1ML VIAL SQ SCH ×2 (11:19→22:27)
[2016-10-04] MEDS: PANTOPRAZOLE SODIUM 100 ML IVPB SCH (11:20)
--- NOTE | 2016-10-04 11:55 | PN ---
Progress Note (short form) - Note Progress Note: events noted alexander has to reinserted started on flomax denies pain. forgetful no distress passing urine afebrile surgical f/u noted fua- increased sbo Vital Signs Temp 99.0 F 10/04/16 08:52 Pulse 84 10/04/16 08:52 Resp 20 10/04/16 08:55 BP 137/88 10/04/16 08:52 Pulse Ox 99 10/04/16 08:55 Intake & Output 10/03/16 10/03/16 10/04/16 11:59 23:59 11:59 Intake Total 2872 968 7886 Output Total 300 350 650 Balance 1300 -150 700 Intake: IV 1100 1000 D5-1/2Ns+10 Meq KCl - 1, 1100 1000 000 ml @ 100 mls/hr IV ASDIR [facility] Rx#:[id number] IVPB 400 100 Oral 100 200 250 Output: Urine 300 350 650 Alexander 300 350 650 Other: Voiding Method Indwelling Catheter Indwelling Catheter Indwelling Catheter Bowel Movement No Yes Active Medications Heparin Sodium (Porcine) (Heparin -) 5,000 unit SQ BID [facility] Last Admin: 10/04/16 11:19 Dose: 5,000 unit Pantoprazole Sodium (Protonix 40mg Ivpb (Pre-Docked)) 100 mls @ 200 mls/hr IVPB DAILY [facility] Last Admin: 10/04/16 11:20 Dose: 200 mls/hr Potassium Chloride/Dextrose/Sod Cl (D5-1/2ns+10 Meq Kcl -) 1,000 mls @ 100 mls/ hr IV ASDIR [facility] Last Admin: 10/04/16 07:02 Dose: 100 mls/hr Tamsulosin HCl (Flomax -) 0.4 mg PO DAILY@0830 [facility] Last Admin: 10/04/16 08:31 Dose: 0.4 mg CBC, BMP 10/01/16 06:00 10/01/16 06:00 Problem List - Problems (1) Small bowel obstruction Code(s): K56.69 - OTHER INTESTINAL OBSTRUCTION (2) Dementia Code(s): F03.90 - UNSPECIFIED DEMENTIA WITHOUT BEHAVIORAL DISTURBANCE Qualifiers: Dementia type: Alzheimer's disease Dementia behavioral disturbance: without behavioral disturbance (3) Dehydration Code(s): E86.0 - DEHYDRATION (4) Bipolar 1 disorder Code(s): F31.9 - BIPOLAR DISORDER, UNSPECIFIED (5) HTN (hypertension) Code(s): I10 - ESSENTIAL (PRIMARY) HYPERTENSION Qualifiers: Hypertension type: essential hypertension Qualified Code(s): I10 - Essential (primary) hypertension (6) Sepsis Code(s): A41.9 - SEPSIS, UNSPECIFIED ORGANISM Qualifiers: Sepsis type: sepsis due to unspecified organism Qualified Code(s): A41.9 - Sepsis, unspecified organism Physical Exam Constitutional: Yes: No Distress Cardiovascular: Yes: Regular Rate and Rhythm Respiratory: Yes: Diminished Gastrointestinal: Yes: Soft, Hypoactive Bowel Sounds. No: Distention, Tenderness Edema: No Neuro- Awake Assessment and Plan Continue present care fluids f/u labs today will consult urology flomax continue present care surgery to follow will follow
[2016-10-04 12:22] LABS: ALBUMIN 2.1 g/dl (3.4-5.0); ANION GAP 7 (8-16); CALCIUM 7.4 mg/dL (8.5-10.1); CO2 27 mmol/L (21-32); CREATININE 0.8 mg/dL (0.7-1.3); GLUCOSE,RANDOM 102 mg/dL (74-106); SGOT/AST 11 U/L (15-37); SGPT/ALT 10 U/L (12-78)
[2016-10-04 12:25] LABS: ALK PHOS 60 U/L (45-117); BILIRUBIN,TOTAL 0.5 mg/dL (0.2-1.0); TOT PROT 5.1 g/dl (6.4-8.2)
[2016-10-04 12:47] LABS: BASOPHIL 0.1 % (0-2.0); EOSINOPHIL 0.9 % (0-4.5); MCH 26.9 pg (25.7-33.7); MCHC 31.5 g/dl (32.0-35.9); MEAN CELL VOLUME 85.6 fl (80-96); MEAN PLT VOLUME 8.1 fl (7.5-11.1); NEUTROPHILS 76.2 % (42.8-82.8); PLATELET COUNT 142 K/MM3 (134-434); RDW 18.9 % (11.9-15.9); WHITE BLOOD COUNT 8.2 K/mm3 (4.0-10.0)
--- NOTE | 2016-10-04 17:04 | PN ---
Progress Note, Physician - Current Medication List Current Medications: Active Medications Heparin Sodium (Porcine) (Heparin -) 5,000 unit SQ BID [facility] Last Admin: 10/04/16 11:19 Dose: 5,000 unit Pantoprazole Sodium (Protonix 40mg Ivpb (Pre-Docked)) 100 mls @ 200 mls/hr IVPB DAILY [facility] Last Admin: 10/04/16 11:20 Dose: 200 mls/hr Potassium Chloride/Dextrose/Sod Cl (D5-1/2ns+10 Meq Kcl -) 1,000 mls @ 100 mls/ hr IV ASDIR [facility] Last Admin: 10/04/16 07:02 Dose: 100 mls/hr Tamsulosin HCl (Flomax -) 0.4 mg PO DAILY@0830 [facility] Last Admin: 10/04/16 08:31 Dose: 0.4 mg - Objective Vital Signs: Vital Signs Temperature 98.6 F 10/04/16 14:14 Pulse Rate 94 H 10/04/16 14:14 Respiratory Rate 20 10/04/16 14:14 Blood Pressure 129/80 10/04/16 14:14 O2 Sat by Pulse Oximetry (%) 99 10/04/16 08:55 Labs: CBC, BMP 10/04/16 11:50 10/04/16 11:50 INR, PTT INR 1.28 (0.82-1.09) H 09/29/16 18:00 Problem List - Problems (1) Ventral hernia with bowel obstruction Code(s): K43.6 - OTHER AND UNSP VENTRAL HERNIA WITH OBSTRUCTION, W/O GANGRENE (2) Dementia Code(s): F03.90 - UNSPECIFIED DEMENTIA WITHOUT BEHAVIORAL DISTURBANCE Qualifiers: Dementia type: Alzheimer's disease Dementia behavioral disturbance: without behavioral disturbance (3) HTN (hypertension) Code(s): I10 - ESSENTIAL (PRIMARY) HYPERTENSION Qualifiers: Hypertension type: essential hypertension Qualified Code(s): I10 - Essential (primary) hypertension Assessment/Plan Surgery. xray suggests increasing small bowel obstruction. Abdomen is soft, not tender, ventral hernia is reducible. in view of persistent small bowel obstruction on X ray will do abdominal Ct scan with oral contrast tomorrow, and if obstruction persists will plan laparotomy. Wbc is normal , no vomiting.
[2016-10-05] MEDS: D5-1/2NS+10 MEQ KCL - 1,000 ML IV SCH ×2 (02:35→16:40)
--- NOTE | 2016-10-05 10:04 | PN ---
Progress Note (short form) - Note Progress Note: Subjective Patient seen and examined. Comfortable. Case discussed with Dr. Pickett yesterday NG Tube reinserted. Patient scheduled for CT scan today. Objective Last Vital Signs Temp Pulse Resp BP Pulse Ox 98.4 F 93 H 20 136/90 96 10/05/16 06:00 10/05/16 06:00 10/05/16 06:00 10/05/16 06:00 10/04/16 21:00 CBC, BMP 10/04/16 11:50 10/04/16 11:50 Laboratory Results - last 24 hr 10/04/16 10/04/16 11:50 11:50 WBC 8.2 RBC 4.01 Hgb 10.8 L Hct 34.3 L MCV 85.6 MCHC 31.5 L RDW 18.9 H Plt Count 142 MPV 8.1 Neutrophils % 76.2 Lymphocytes % 16.4 Monocytes % 6.4 Eosinophils % 0.9 Basophils % 0.1 Sodium 147 H Potassium 3.5 Chloride 113 H Carbon Dioxide 27 Anion Gap 7 L BUN 11 D Creatinine 0.8 Creat Clearance w eGFR > 60 Random Glucose 102 Calcium 7.4 L Total Bilirubin 0.5 D AST 11 L D ALT 10 L Alkaline Phosphatase 60 Total Protein 5.1 L Albumin 2.1 L Physical Exam Constitutional: Yes: No Distress Cardiovascular: Yes: Regular Rate and Rhythm Respiratory: Yes: Diminished Gastrointestinal: Yes: Soft, Hypoactive Bowel Sounds. No: Distention, Tenderness Edema: No Neuro: Awake Assessment and Plan Continue present care fluids f/u labs noted flomax will follow Documentation prepared by Patsy Farfan, acting as a medical radiation tech for Ani Coughlin MD.
[2016-10-05] MEDS: PANTOPRAZOLE SODIUM 100 ML IVPB SCH (12:00)
[2016-10-05] MEDS: HEPARIN NA (PORCINE) 5,000 UNITS/ML 1ML VIAL SQ SCH ×2 (12:00→22:16)
[2016-10-05] MEDS: TAMSULOSIN HCL 0.4 MG CAP.ER.24H (FP) PO SCH (12:40)
[2016-10-05] MEDS: BACITRACIN/POLYMYXIN B SULFATE 15 GM TUBE TP SCH ×2 (15:47→22:17)
--- NOTE | 2016-10-05 15:50 | CONSULT ---
Consult Consult Specialty:: urology Referred by:: medicine Reason for Consultation:: urinary retention - History of Present Illness Chief Complaint: urinary retention History of Present Illness: 85 year old NHR with SBO who is noted to be in urinary retention. He is on Flomax pre-admission, Alexander cath is place. On CT it also appears that his rectum is full of stool - History Source History Provided By: Medical Record Limitations to Obtaining History: Dementia - Past Medical History ASSESSMENT EXPERT: Yes: Dementia Cardio/Vascular: Yes: HTN Gastrointestinal: Yes: GERD Renal/: Yes: BPH Psych: Yes: Bipolar, Depression Endocrine: Yes: Diabetes Mellitus - Alcohol/Substance Use Hx Alcohol Use: No - Smoking History Smoking history: Never smoked Have you smoked in the past 12 months: No Aproximately how many cigarettes per day: 0 Home Medications - Allergies Allergies/Adverse Reactions: Allergies Allergy/AdvReac Type Severity Reaction Status Date / Time No Known Allergies Allergy Verified 09/29/16 17:12 - Home Medications Home Medications: Ambulatory Orders Calcium Carb/Magnesium Oxid/D3 [Calcium Magnesium + D Tablet] 1 mg PO DAILY 25/06 Citalopram Hydrobromide [Celexa] 20 mg PO DAILY 07/26/11 Gabapentin [Neurontin -] 300 mg PO HS 07/26/11 Metformin HCl [Glucophage Xr] 500 mg PO BID 07/26/11 Multivitamin [Daily Multiple Vitamin] 1 each PO DAILY 07/26/11 Xalatan Ophth Drops 1 gtt OU HS 07/26/11 Acetaminophen [Tylenol .Regular Strength -] 650 mg PO Q6H PRN 04/14/12 Aspirin [ASA -] 81 mg PO DAILY 04/14/12 Ibuprofen [Motrin -] 400 mg PO QID PRN 04/14/12 Insulin Regular, Human [Novolin R] 0 unit SQ ASDIR 04/14/12 Latanoprost 0.005% Eye Drops [Xalatan 0.005% Eye Drops -] 1 drop HS 04/14/12 Phenol/Eucalyptus Oil/Menthol [Cepastat 29 mg Lozenge] 29 mg PO ASDIR PRN Simvastatin [Zocor] 10 mg PO DAILY 04/14/12 Brimonidine Tartrate [Alphagan 0.15% -] 1 drop OD TID 09/29/16 Divalproex *ER* [Depakote *ER* -] 500 mg PO HS 09/29/16 Dorzolamide HCl [Trusopt 2%] 1 drop AD BID 09/29/16 Ferrous Sulfate [Feosol] 325 mg PO DAILY 09/29/16 Meclizine HCl 25 mg PO TID 09/29/16 Megestrol Acetate [Megace] 400 mg PO DAILY 09/29/16 Omeprazole Magnesium [Prilosec] 20 mg PO DAILY 09/29/16 Oxybutynin Chloride [Ditropan -] 5 mg PO DAILY 09/29/16 Risperidone 0.5 mg PO HS 09/29/16 Tamsulosin HCl [Flomax] 0.4 mg PO DAILY 09/29/16 Review of Systems Unable to obtain ROS, reason: dementia Physical Exam Vital Signs: Vital Signs Temperature 97.4 F L 10/05/16 14:52 Pulse Rate 85 10/05/16 14:52 Respiratory Rate 20 10/05/16 14:52 Blood Pressure 148/87 10/05/16 14:52 O2 Sat by Pulse Oximetry (%) 96 10/05/16 09:00 Renal/: Yes: Alexander Present. No: Bladder Distention, CVA Tenderness - Left, CVA Tenderness - Right, Hematuria Labs: CBC, BMP 10/04/16 11:50 10/04/16 11:50 Imaging - Results Cat Scan: Image Reviewed Problem List - Problems (1) Retention of urine Assessment/Plan: patient with fecal impaction and SBO which are likely contributing to his urinary retention,. Once those two conditions are resolved alexander can be removed and a trial of void given. Continue flomax once patient can take po meds again Code(s): R33.9 - RETENTION OF URINE, UNSPECIFIED
--- NOTE | 2016-10-05 17:51 | PN ---
Progress Note, Physician - Current Medication List Current Medications: Active Medications Bacitracin/Polymyxin B Sulfate (Polysporin Ointment -) 1 applic TP BID [facility] Last Admin: 10/05/16 15:47 Dose: 1 applic Heparin Sodium (Porcine) (Heparin -) 5,000 unit SQ BID [facility] Last Admin: 10/05/16 12:00 Dose: 5,000 unit Pantoprazole Sodium (Protonix 40mg Ivpb (Pre-Docked)) 100 mls @ 200 mls/hr IVPB DAILY [facility] Last Admin: 10/05/16 12:00 Dose: 200 mls/hr Potassium Chloride/Dextrose/Sod Cl (D5-1/2ns+10 Meq Kcl -) 1,000 mls @ 100 mls/ hr IV ASDIR [facility] Last Admin: 10/05/16 02:35 Dose: 100 mls/hr Tamsulosin HCl (Flomax -) 0.4 mg PO DAILY@0830 [facility] Last Admin: 10/05/16 12:40 Dose: 0.4 mg - Objective Vital Signs: Vital Signs Temperature 97.4 F L 10/05/16 14:52 Pulse Rate 85 10/05/16 14:52 Respiratory Rate 20 10/05/16 14:52 Blood Pressure 148/87 10/05/16 14:52 O2 Sat by Pulse Oximetry (%) 96 10/05/16 09:00 Labs: CBC, BMP 10/04/16 11:50 10/04/16 11:50 INR, PTT INR 1.28 (0.82-1.09) H 09/29/16 18:00 Problem List - Problems (1) Ventral hernia with bowel obstruction Code(s): K43.6 - OTHER AND UNSP VENTRAL HERNIA WITH OBSTRUCTION, W/O GANGRENE (2) Dementia Code(s): F03.90 - UNSPECIFIED DEMENTIA WITHOUT BEHAVIORAL DISTURBANCE Qualifiers: Dementia type: Alzheimer's disease Dementia behavioral disturbance: without behavioral disturbance (3) HTN (hypertension) Code(s): I10 - ESSENTIAL (PRIMARY) HYPERTENSION Qualifiers: Hypertension type: essential hypertension Qualified Code(s): I10 - Essential (primary) hypertension Assessment/Plan Surgery: Ct scan does not show intestinal obstruction . Shows proctitis. Will D/C NG tube. Resume feeding.
[2016-10-06] MEDS: D5-1/2NS+10 MEQ KCL - 1,000 ML IV SCH ×2 (00:49→10:02)
[2016-10-06 07:25] LABS: BASOPHIL 0.3 % (0-2.0); MCH 27.5 pg (25.7-33.7); MCHC 32.6 g/dl (32.0-35.9); MEAN CELL VOLUME 84.4 fl (80-96); MEAN PLT VOLUME 7.7 fl (7.5-11.1); PLATELET COUNT 137 K/MM3 (134-434); RDW 18.3 % (11.9-15.9); WHITE BLOOD COUNT 9.1 K/mm3 (4.0-10.0)
[2016-10-06 07:50] LABS: ALBUMIN 1.9 g/dl (3.4-5.0); ANION GAP 9 (8-16); CALCIUM 7.2 mg/dL (8.5-10.1); CO2 27 mmol/L (21-32); CREATININE 0.7 mg/dL (0.7-1.3); GLUCOSE,RANDOM 101 mg/dL (74-106); SGOT/AST 13 U/L (15-37); SGPT/ALT 10 U/L (12-78)
[2016-10-06 07:52] LABS: ALK PHOS 62 U/L (45-117); BILIRUBIN,TOTAL 0.6 mg/dL (0.2-1.0); TOT PROT 4.8 g/dl (6.4-8.2)
[2016-10-06] MEDS: PANTOPRAZOLE SODIUM 100 ML IVPB SCH (09:48)
[2016-10-06] MEDS: TAMSULOSIN HCL 0.4 MG CAP.ER.24H (FP) PO SCH (09:49)
[2016-10-06] MEDS: HEPARIN NA (PORCINE) 5,000 UNITS/ML 1ML VIAL SQ SCH (09:49)
--- NOTE | 2016-10-06 11:52 | DS ---
Physical Examination Vital Signs: Vital Signs Temperature 98.9 F 10/06/16 05:23 Pulse Rate 77 10/06/16 05:23 Respiratory Rate 20 10/06/16 05:23 Blood Pressure 142/93 10/06/16 05:23 O2 Sat by Pulse Oximetry (%) 96 10/05/16 21:00 Constitutional: Yes: No Distress, Calm Cardiovascular: Yes: Regular Rate and Rhythm Respiratory: Yes: Diminished Gastrointestinal: Yes: Normal Bowel Sounds, Soft. No: Distention, Tenderness Edema: No Labs: CBC, BMP 10/06/16 06:00 10/06/16 06:00 Discharge Summary Reason For Visit: SMALL BOWEL OBSTRUCTION Current Active Problems Bipolar 1 disorder (Acute) Dehydration (Acute) Dementia (Acute) Fecal impaction (Acute) HTN (hypertension) (Acute) Retention of urine (Acute) Sepsis (Acute) Small bowel obstruction (Acute) Ventral hernia with bowel obstruction (Acute) Hospital Course: Pt admitted for high grade SBO. NG tube was placed but pt pulled out by himself Seen by GI and Surgeon Conservative measures undertaken as pt's daughter did not want aggressive measures- no surgery Pt 's ventral hernia reducible easily. He had a bm today morning He is eating without difficulty but does not have a good appetite. Pt had urinary retention during admission and alexander was placed back in after 24 hours of not urinating. Flomax restarted repeat CT abd shows proctitis and resolved SBO started on PO Flagyl for proctitis Pt is stable for dc to NH-- he is on Hospice care at [facility] DNR/DNI Condition: Improved - Instructions Diet, Activity, Other Instructions: on Hospice Referrals: Ani Coughlin MD [Primary Care Provider] - [facility]position: [facility] - Home Medications Comprehensive Discharge Medication List: Ambulatory Orders Calcium Carb/Magnesium Oxid/D3 [Calcium Magnesium + D Tablet] 1 mg PO DAILY 25/06 Citalopram Hydrobromide [Celexa] 20 mg PO DAILY 07/26/11 Multivitamin [Daily Multiple Vitamin] 1 each PO DAILY 07/26/11 Xalatan Ophth Drops 1 gtt OU HS 07/26/11 Acetaminophen [Tylenol .Regular Strength -] 650 mg PO Q6H PRN 04/14/12 Latanoprost 0.005% Eye Drops [Xalatan 0.005% Eye Drops -] 1 drop HS 04/14/12 Brimonidine Tartrate [Alphagan 0.15% -] 1 drop OD TID 09/29/16 Divalproex *ER* [Depakote *ER* -] 500 mg PO HS 09/29/16 Dorzolamide HCl [Trusopt 2% -] 1 drop AD BID 09/29/16 Ferrous Sulfate [Feosol] 325 mg PO DAILY 09/29/16 Megestrol Acetate [Megace] 400 mg PO DAILY 09/29/16 Omeprazole Magnesium [Prilosec] 20 mg PO DAILY 09/29/16 Risperidone 0.5 mg PO HS 09/29/16 Tamsulosin HCl [Flomax] 0.4 mg PO DAILY 09/29/16 Metronidazole [Flagyl -] 500 mg PO TID #21 tablet 10/06/16
[2016-10-06] MEDS ORDERED: metroNIDAZOLE 250 MG TABLET PO SCH (12:30)
[2016-10-06 14:22] VITALS: BP 146/85; PULSE 76; TEMP 98.8
== END 2016-10-06 15:07 | DRG 871 ==
LOC: JER 16:53 → JERBED 18:26 → J7W 21:33
PROVIDERS: ADMIT Internal Medicine; ATTEND Internal Medicine
DX: A41.9 Sepsis, unspecified organism (principal); L89.153 Pressure ulcer of sacral region, stage 3; K43.6 Other and unspecified ventral hernia with obstruction, without gangrene; F03.90 Unspecified dementia, unspecified severity, without behavioral disturbance, psychotic disturbance, mood disturbance, and anxiety; Z66 Do not resuscitate; E86.0 Dehydration; I10 Essential (primary) hypertension; K21.9 Gastro-esophageal reflux disease without esophagitis; E11.9 Type 2 diabetes mellitus without complications; Z79.4 Long term (current) use of insulin; F31.9 Bipolar disorder, unspecified; R33.9 Retention of urine, unspecified; K62.89 Other specified diseases of anus and rectum
CPT/HCPCS: 36415; 71010-TC; 74000-TC; 74020-TC; 74176-TC; 80053; 81003; 81015; 83605; 83735; 85025; 85610; 86850; 86900; 86901; 87040; 87086; 93005; 93010; 97161-GP; 99284-25; J1644; Q9967